=== PATIENT | male | born 1950 | race Two or more races ===

== ENCOUNTER 2016-09-03 11:51 | Inpatient (IN) | payer OTHER ==
[~2016-09-03] VITALS: Ht 193 cm; Wt 99.7 kg
[~2016-09-03 11:51] MED LIST: CYAN1DRO PO; DOXA1TAB41 PO; FINA5TAB4 PO; HYDR25TA4 PO; INSLANTI SC; LEVO50TA7 PO; LISI40TA PO; METF-371 PO
[2016-09-03] MEDS ORDERED: SODIUM CHLORIDE 0.9% 1,000 ML IVB ONE (12:32)
[2016-09-03 13:20] LABS: Basophils # (auto) 0.1 uL; Basophils % (auto) 0.6 % (0.0-2.0); Eosinophils # (auto) 0.1 uL; Eosinophils % (auto) 0.7 % (0.0-7.0); Hematocrit 27.3 % (41.0-53.0); Hemoglobin 9.2 g/dL (13.5-17.5); Lymphocytes # (auto) 0.8 uL; Lymphocytes % (auto) 6.7 % (10.0-50.0); Mean Corpuscular Hemoglobin 30.1 pg (28.0-32.0); Mean Corpuscular Hgb Conc. 33.5 g/dL (32.0-36.0); Mean Corpuscular Volume 89.7 fL (80.0-100.0); Mean Platelet Volume 7.2 fL (7.4-10.4); Monocytes # (auto) 0.4 uL; Monocytes % (auto) 3.1 % (0.0-12.0); Neutrophils # (auto) 10.7 uL; Neutrophils % (auto) 88.9 % (37.0-80.0); Platelet Count (auto) 450 10^3/uL (140-450); Red Cell Distribution Width 14.6 % (11.6-16.0)
[2016-09-03 13:54] LABS: Albumin 2.5 g/dL (3.4-5.0); Anion Gap 12 (5-15); Aspartate Aminotransferase 17 U/L (15-37); BUN/Creatinine Ratio 15.5; Blood Urea Nitrogen 16 mg/dL (7-18); Calcium 7.2 mg/dL (8.5-10.1); Carbon Dioxide 20 mmol/L (21-32); Chloride 107 mmol/L (98-107); GFR African American 92 mL/min; GFR Non-African American 76 mL/min; Glucose 259 mg/dL (74-106); HEMOLYSIS - HIL 1; ICTERIA - HIL 1; LIPEMIA - HIL 1; Magnesium 1.6 mg/dL (1.6-2.6); Sodium 139 mmol/L (136-145)
[2016-09-03 13:59] LABS: Alkaline Phosphatase 74 U/L (45-117); Bilirubin, Total 0.4 mg/dL (0.2-1.0); Total Protein 5.3 g/dL (6.4-8.2)
[2016-09-03] MEDS ORDERED: ACETAMINOPHEN 325 MG TAB PO ONE (14:30)
[2016-09-03] MEDS ORDERED: cefTRIAXone 1GM/50ML D5W 50 ML IV ONE (14:30)
[2016-09-03] MEDS ORDERED: VANCOMYCIN PER PHARMACY 0 MG IV SCH (14:30)
[2016-09-03] MEDS ORDERED: NITROGLYCERIN 0.4 MG SL TAB SL PRN (14:30)
[2016-09-03] MEDS ORDERED: DEXTROSE (50%) 50ML SYRG IV PRN (14:30)
[2016-09-03] MEDS ORDERED: MORPHINE SULF INJ 2 MG/ML SYRINGE 1ML IV PRN (14:30)
[2016-09-03] MEDS: SODIUM CHLORIDE 0.9% 1,000 ML IV SCH ×2 (14:56→23:54)
[2016-09-03] MEDS ORDERED: PANTOPRAZOLE 40 MG TAB PO ONE (15:00)
[2016-09-03] MEDS ORDERED: ASPirin 81 mg TAB PO ONE (15:00)
[2016-09-03] MEDS ORDERED: ENOXAPARIN SOD 30 MG/0.3 ML SYRINGE SC ONE (15:30)
[2016-09-03] MEDS: metroNIDAZOLE 500MG/100ML 100 ML IV SCH ×2 (16:00→23:54)
[2016-09-03] MEDS: InsuLIN REG 1unit/0.01ml Soln (100units/ml) SC SCH ×2 (17:00→21:38)
[2016-09-03] MEDS: VANCOMYCIN 1GM/250ML D5W 250 ML IV SCH (17:00)
[2016-09-03] MEDS: ACCU-CHEK COMFORT CURVE STRIP VI SCH ×2 (17:00→21:37)
[2016-09-03] MEDS: PANCREATIC ENZYMES 4200 UNIT CAP PO SCH (18:00)
[2016-09-03 20:15] VITALS: BP 100/52
[2016-09-03] MEDS: ATORVASTATIN 20 MG TAB PO SCH (21:37)
[2016-09-03] MEDS: TICAGRELOR 90 MG TAB PO SCH (21:37)
[2016-09-03 23:58] VITALS: BP 100/52
[2016-09-04] VITALS (13 sets, daily range): BP systolic 94–127; BP diastolic 49–66
[2016-09-04] MEDS: VANCOMYCIN 1GM/250ML D5W 250 ML IV SCH ×2 (01:06→10:17)
[2016-09-04] MEDS: ACCU-CHEK COMFORT CURVE STRIP VI SCH ×4 (06:41→21:28)
[2016-09-04] MEDS: LEVOTHYROXINE SODIUM 25 MCG TAB PO SCH (06:41)
[2016-09-04] MEDS: SODIUM CHLORIDE 0.9% 1,000 ML IV SCH ×2 (06:42→11:56)
[2016-09-04] MEDS: InsuLIN REG 1unit/0.01ml Soln (100units/ml) SC SCH ×4 (06:42→21:35)
[2016-09-04 06:52] LABS: INR 1.02 (0.9-1.15); Prothrombin Time 11.1 sec (9.37-12.3)
[2016-09-04 06:53] LABS: Calcium 7.7 mg/dL (8.5-10.1)
[2016-09-04 07:32] LABS: Basophils # (auto) 0.1 uL; Basophils % (auto) 0.7 % (0.0-2.0); DEFINITIVE VIEW TRANSMISSION; Eosinophils # (auto) 0.1 uL; Eosinophils % (auto) 1.5 % (0.0-7.0); Hematocrit 22.5 % (41.0-53.0); Hemoglobin 7.7 g/dL (13.5-17.5); Lymphocytes # (auto) 1.4 uL; Lymphocytes % (auto) 17.5 % (10.0-50.0); Mean Corpuscular Hemoglobin 30.4 pg (28.0-32.0); Mean Corpuscular Hgb Conc. 34.1 g/dL (32.0-36.0); Mean Corpuscular Volume 89.1 fL (80.0-100.0); Mean Platelet Volume 7.3 fL (7.4-10.4); Monocytes # (auto) 0.5 uL; Monocytes % (auto) 5.9 % (0.0-12.0); Neutrophils % (auto) 74.4 % (37.0-80.0); Platelet Count (auto) 281 10^3/uL (140-450); Red Cell Distribution Width 14.6 % (11.6-16.0); White Blood Cell 8.1 10^3/uL (4.4-10.8)
[2016-09-04] MEDS: PANCREATIC ENZYMES 4200 UNIT CAP PO SCH ×3 (08:21→18:33)
[2016-09-04] MEDS: metroNIDAZOLE 500MG/100ML 100 ML IV SCH ×2 (08:21→16:11)
[2016-09-04] MEDS: cefTRIAXone 1GM/50ML D5W 50 ML IV SCH (09:35)
[2016-09-04] MEDS: TICAGRELOR 90 MG TAB PO SCH ×2 (10:19→21:27)
[2016-09-04] MEDS: ENOXAPARIN SOD 30 MG/0.3 ML SYRINGE SC SCH (10:20)
[2016-09-04] MEDS: ASPirin 81 mg TAB PO SCH (10:20)
[2016-09-04] MEDS: PANTOPRAZOLE 40 MG TAB PO SCH (10:20)
[2016-09-04] MEDS: FINASTERIDE 5 MG TAB PO SCH (10:23)
[2016-09-04] MEDS ORDERED: INSLISPI SC (11:20)
[2016-09-04] MEDS ORDERED: LORA-154 PO (11:20)
[2016-09-04] MEDS ORDERED: FAMO40TA49 PO (11:20)
[2016-09-04] MEDS ORDERED: NITR0.4S29 SL (11:20)
[2016-09-04] MEDS ORDERED: ONDA8TAB6 PO (11:20)
[2016-09-04] MEDS ORDERED: HYDR-4663 PO (11:20)
[2016-09-04] MEDS ORDERED: LEVO75TA6 PO (11:20)
[2016-09-04] MEDS ORDERED: DOXA1TAB41 PO (11:20)
[2016-09-04] MEDS ORDERED: SPIR50TA23 PO (11:20)
[2016-09-04] MEDS ORDERED: PANT40T PO (11:20)
[2016-09-04] MEDS ORDERED: MAGN400T7 PO (11:20)
[2016-09-04 11:43] LABS: Urine RBC None Seen /hpf (0 - 3)
[2016-09-04 11:55] LABS: Urine Bilirubin Negative (Negative); Urine Blood Negative /uL (Negative); Urine Color Yellow (Yellow); Urine Ketone Negative (Negative); Urine Mucus FEW (None Seen); Urine Nitrite Negative (Negative); Urine Squamous Epithelial Cell FEW /hpf (<5); Urine Urobilinogen Normal (Negative)
[2016-09-04 12:06] LABS: Urine Glucose 2+ mg/dL (Normal)
[2016-09-04] MEDS ORDERED: HYDROcodone-ACET 5/325MG TAB PO PRN (15:45)
[2016-09-04] MEDS: ACETAMINOPHEN 500 MG TAB PO PRN (16:11)
[2016-09-04] MEDS: ATORVASTATIN 20 MG TAB PO SCH (21:28)
[2016-09-05] MEDS: SODIUM CHLORIDE 0.9% 1,000 ML IV SCH ×2 (00:55→14:15)
[2016-09-05 01:20] VITALS: BP 114/81
[2016-09-05] MEDS: metroNIDAZOLE 500MG/100ML 100 ML IV SCH ×3 (01:39→17:17)
[2016-09-05] MEDS: ACETAMINOPHEN 500 MG TAB PO PRN (04:04)
[2016-09-05 05:00] VITALS: BP 111/56
[2016-09-05] MEDS: ACCU-CHEK COMFORT CURVE STRIP VI SCH ×4 (06:18→21:48)
[2016-09-05] MEDS: LEVOTHYROXINE SODIUM 25 MCG TAB PO SCH (06:18)
[2016-09-05] MEDS: InsuLIN REG 1unit/0.01ml Soln (100units/ml) SC SCH ×4 (06:19→21:49)
[2016-09-05 06:20] LABS: Basophils # (auto) 0 uL; Basophils % (auto) 0.7 % (0.0-2.0); Eosinophils # (auto) 0.4 uL; Eosinophils % (auto) 5.9 % (0.0-7.0); Hematocrit 25.4 % (41.0-53.0); Hemoglobin 8.6 g/dL (13.5-17.5); Lymphocytes # (auto) 1.8 uL; Lymphocytes % (auto) 25.3 % (10.0-50.0); Mean Corpuscular Hemoglobin 29.9 pg (28.0-32.0); Mean Corpuscular Hgb Conc. 33.8 g/dL (32.0-36.0); Mean Corpuscular Volume 88.3 fL (80.0-100.0); Mean Platelet Volume 7.2 fL (7.4-10.4); Monocytes # (auto) 0.6 uL; Neutrophils # (auto) 4.2 uL; Neutrophils % (auto) 60.1 % (37.0-80.0); Platelet Count (auto) 253 10^3/uL (140-450); Red Cell Distribution Width 15.4 % (11.6-16.0); White Blood Cell 6.9 10^3/uL (4.4-10.8)
[2016-09-05 06:50] LABS: Calcium 7.8 mg/dL (8.5-10.1); Potassium 4.1 mmol/L (3.5-5.1)
[2016-09-05] MEDS: PANCREATIC ENZYMES 4200 UNIT CAP PO SCH ×3 (08:13→18:31)
[2016-09-05 09:00] VITALS: BP 107/62
[2016-09-05] MEDS: cefTRIAXone 1GM/50ML D5W 50 ML IV SCH (09:00)
[2016-09-05] MEDS: FINASTERIDE 5 MG TAB PO SCH (09:56)
[2016-09-05] MEDS: ASPirin 81 mg TAB PO SCH (09:56)
[2016-09-05] MEDS: ENOXAPARIN SOD 30 MG/0.3 ML SYRINGE SC SCH (09:56)
[2016-09-05] MEDS: TICAGRELOR 90 MG TAB PO SCH ×2 (09:56→21:48)
[2016-09-05] MEDS: PANTOPRAZOLE 40 MG TAB PO SCH (09:56)
[2016-09-05] MEDS ORDERED: IOHEXOL 350 MG/ML 100ML IJ ONE (10:20)
[2016-09-05 13:00] VITALS: BP 90/51
[2016-09-05] MEDS ORDERED: VANCOMYCIN PER PHARMACY 0 MG IV SCH (13:00)
[2016-09-05] MEDS: FLUCONAZOLE 200MG/100ML 100 ML IV SCH ×2 (14:00→14:01)
[2016-09-05] MEDS ORDERED: MORPHINE SULF INJ 2 MG/ML SYRINGE 1ML IV PRN (14:15)
[2016-09-05] MEDS ORDERED: LORazepam 2MG/ML-1ML VIAL IV PRN (14:15)
[2016-09-05] MEDS: VANCOMYCIN 1GM/250ML D5W 250 ML IV SCH ×2 (15:19→23:09)
[2016-09-05 16:36] VITALS: BP 88/48
[2016-09-05 16:44] LABS: Urine Bilirubin Negative (Negative); Urine Blood Negative /uL (Negative); Urine Color Yellow (Yellow); Urine Glucose TRACE mg/dL (Normal); Urine Mucus FEW (None Seen); Urine Nitrite Negative (Negative); Urine RBC 1 /hpf (0 - 3); Urine Urobilinogen Normal (Negative); Urine pH 6.5 (5.0-8.0)
[2016-09-05] MEDS ORDERED: SODIUM CHLORIDE 0.9% 1,000 ML IV ONE (16:45)
[2016-09-05 18:25] LABS: Urine Ketone 2+ (Negative)
[2016-09-05] MEDS ORDERED: FLUCONAZOLE 200MG/100ML 100 ML IV SCH (19:00)
[2016-09-05] MEDS: ATORVASTATIN 20 MG TAB PO SCH (21:48)
[2016-09-05 22:00] VITALS: BP 96/54
[2016-09-06] MEDS: metroNIDAZOLE 500MG/100ML 100 ML IV SCH (00:22)
[2016-09-06 01:55] VITALS: BP 103/53
[2016-09-06] MEDS ORDERED: FLUCONAZOLE 200MG/100ML 100 ML IV SCH (10:00)
== END 2016-09-06 03:10 | disposition short-term general hospital (02) | DRG 862 ==
LOC: EDBD 11:51 → ER 11:56 → TELE 11:57 → TELE-EAST 20:49
PROVIDERS: ADMIT Internal Medicine; ATTEND Internal Medicine
PROC: 30233N1 Transfusion of Nonautologous Red Blood Cells into Peripheral Vein, Percutaneous Approach (ICD-10-PCS; principal; 2016-09-04)
DX: T81.4XXA Infection following a procedure, initial encounter (principal); A41.9 Sepsis, unspecified organism; E44.0 Moderate protein-calorie malnutrition; N13.30 Unspecified hydronephrosis; D64.9 Anemia, unspecified; E03.9 Hypothyroidism, unspecified; E11.65 Type 2 diabetes mellitus with hyperglycemia; E78.5 Hyperlipidemia, unspecified; K57.30 Diverticulosis of large intestine without perforation or abscess without bleeding; E83.51 Hypocalcemia; I10 Essential (primary) hypertension; I25.10 Atherosclerotic heart disease of native coronary artery without angina pectoris; Z85.07 Personal history of malignant neoplasm of pancreas; Z90.411 Acquired partial absence of pancreas; Z92.21 Personal history of antineoplastic chemotherapy; Z95.5 Presence of coronary angioplasty implant and graft; Z79.4 Long term (current) use of insulin; Z79.899 Other long term (current) drug therapy; Z90.49 Acquired absence of other specified parts of digestive tract; Z68.26 Body mass index [BMI] 26.0-26.9, adult; Z90.410 Acquired total absence of pancreas
CPT/HCPCS: 36415; 71010; 71275; 74176; 80048; 80053; 81001; 82962; 83036; 83735; 84443; 84484; 85025; 85379; 85610; 85730; 86850; 86900; 86901; 86920; 87040; 87077; 87081; 87086; 87186; 87205; 93005; 93306; 93970; 94761; 96361; 96365; 96372; J0696; J1450; J1815; J3490

== ENCOUNTER 2023-11-19 04:43 | Emergency (ER) | payer OTHER ==
[~2023-11-19] VITALS: Ht 195.6 cm; Wt 102.3 kg
[~2023-11-19 04:43] MED LIST changes: +AMLO1TAB22 PO; +ATOR-507 PO; +CYAN100060 SC; -CYAN1DRO PO; +FERR325T24 PO; +GABA-1250 PO; +HYDR-4833 PO; +INSLISPI SC; -LISI40TA PO; +LOSA-535 PO; -METF-371 PO; +NITR0.4S29 SL; +PANC1CAP30 PO; +PANT40T PO
[2023-11-19 07:45] VITALS: BP 137/88; PULSE 87; RESP 16; TEMP 98.4; O2SAT 99
[2023-11-19] MEDS: LIDOCAINE 1% (LOCAL ANESTH.) PF 5ml SDV ID ONE (08:21)
[2023-11-19] MEDS: LIDOCAINE 1% HCL (LOCAL ANESTH.) INJ 20ML MDV ONE (08:22)
== END 2023-11-19 09:23 | disposition home or self-care (01) ==
LOC: ER 04:43 → EDBD 04:43 → EDUNIT# 04:43 → ER 09:23
DX: M25.462 Effusion, left knee (principal); E11.9 Type 2 diabetes mellitus without complications; E78.5 Hyperlipidemia, unspecified; I10 Essential (primary) hypertension; Z88.1 Allergy status to other antibiotic agents
CPT/HCPCS: 20610; 29505; 73562; J2001